=== PATIENT | male | born 1955 | race Caucasian/White ===

== ENCOUNTER → 2017-03-16 | Outpatient (CLI) | payer OTHER ==
[~2017-03-16] MED LIST: ASPI81TA28 PO; CHOL100010 PO; MULT-513 PO
--- NOTE | 2017-03-16 10:50 | DIAGNOSTIC IMAGING REPORT ---
TWO VIEW CHEST CLINICAL HISTORY: Cough. FINDINGS: PA and lateral chest radiographs are obtained. No prior studies are available for comparison at the time of dictation. The cardiomediastinal silhouette is unremarkable. The lungs and pleural spaces are clear. There is no pneumothorax. The bony thorax appears intact. IMPRESSION: No active disease in the chest. Electronically signed by: Jeff Quevedo M.D. 03/16/2017 10:48 AM Dictated Date/Time: 03/16/2017 10:48 AM
== END | disposition home or self-care (01) ==
LOC: C.RAD1850 10:33
PROVIDERS: ATTEND Family Medicine
DX: R09.89 Other specified symptoms and signs involving the circulatory and respiratory systems (principal); R05 Cough